=== PATIENT | female | born 1985 | race Caucasian/White ===

== ENCOUNTER 2019-04-14 15:46 | Outpatient (CLI) | payer OTHER ==
[~2019-04-14] VITALS: Ht 160 cm; Wt 100.6 kg
[~2019-04-14 15:46] MED LIST: PREN-93 PO
[2019-04-14 17:20] VITALS: BP 121/75; PULSE 74; RESP 18
[2019-04-14 17:21] VITALS: Ht 160 cm; Wt 100.6 kg
--- NOTE | 2019-04-14 17:32 | TRIAGE ---
OB Triage Datetime Report Generated by CPN: 04/14/2019 17:31 Datetime: 04/14/2019 16:46 Assessment Type: Triage Maternal Assessment Level of Consciousness: Keenly Alert, Responsive DTR's/Clonus: DTRs 2+; No Clonus Headache: Denies Blurred Vision: No Respiratory Effort: Unlabored; Regular Rhythm; Equal Expansion Breath Sounds, Left: Clear and Equal Breath Sounds, Right: Clear and Equal Nausea/Vomiting: Denies RUQ Epigastric Pain: Denies Lower Extremities Edema: None Degree: None Upper Extremities Edema: None Degree: None Facial Edema: None Fall Risk Assessment History of Falling: (0) No Secondary Diagnosis: (0) No Ambulatory Aid: (0) Bedrest/Nurse Assist IV Therapy: (0) No Gait: (0) Normal/Bedrest/Immobile Mental Status: (0) Oriented to Own Ability Fall Score: 0 Fall Risk Score Definition: No Risk: No action required Datetime: 04/14/2019 16:44 Time of Arrival: 04/14/2019 15:38 EGA: 38.5 Arrived By: Ambulatory Arrived From: Dr. Ennis Chief Complaint: PT. SENT FROM CLINIC FOR C/O DFM Movement: Decreased Contractions: Denies/Absent Rupture of Membranes: Denies Vaginal Bleeding: None Vaginal Discharge: Denies Recent Sexual Intercouse: Denies Abdominal Trauma: Not Applicable Patient Complaints: None Time Provider Notified: 04/14/2019 17:23 Provider Notified: DELSHAD Initial Plan: NST/BPP/EFW Datetime: 04/14/2019 16:39 Labor Evaluation Monitor Mode: External Heart Rate Monitor Mode: External US
--- NOTE | 2019-04-14 19:57 | PN ---
Triage Information Date/Time Reason for visit: DFM Weeks of Gestation 38 weeks and 5 days /Para -0-0-2 Diabetes: none Hypertention: none Objective Vital Signs Date Temp Pulse Resp B/P (MAP) Pulse Ox O2 O2 Flow FiO2 Time Delivery Rate 04/14/19 98.4 74 18 121/75 Room Air 17:20 (90) Heart Rate: 140's Contractions: None Disposition: Discharge Assessment/Plan 33 years old -0-0-2 with single intrauterine at 38 weeks and 5 days complaining of decreased movement. She denies nausea, vomiting, shortness of breath, chest pain, headache, visual changes, vaginal bleeding or LOF. -FHR: No sign of metabolic acidosis- Category I -Contractions: None -Ultrasound performed: Normal ROBBI, BPP 8 out of 8 -Symptoms and sign of labor, preeclampsia, kick count discussed with patient, she voiced understanding. All of her questions answered. -Patient was discharged home in stable condition with the appropriate discharge instructions provided. I would like patient to have close follow-up with her primary physician or outpatient clinic in 1-2 days or return to triage for w orsening symptoms or any other urgent concerns. ROMULO KUMARI Apr 14, 2019 19:57
== END 2019-04-14 17:35 | disposition home or self-care (01) ==
LOC: OBT 15:46 → L-D 15:48 → OBT 17:35
PROVIDERS: ATTEND Obstetrics & Gynecology
DX: O36.8130 Decreased fetal movements, third trimester, not applicable or unspecified (principal); Z3A.38 38 weeks gestation of pregnancy
CPT/HCPCS: 76815; 76818; G0463

== ENCOUNTER 2019-04-16 15:41 | Outpatient (CLI) | payer OTHER ==
[~2019-04-16] VITALS: Ht 160 cm; Wt 100.4 kg
[2019-04-16 15:58] VITALS: Ht 160 cm; Wt 100.4 kg
[2019-04-16 15:59] VITALS: BP 121/59; PULSE 87; RESP 18
--- NOTE | 2019-04-16 19:44 | PN ---
Triage Information Date/Time Reason for visit: DFM Weeks of Gestation 39 weeks /Para Diabetes: none Hypertention: none Objective Vital Signs Date Temp Pulse Resp B/P (MAP) Pulse Ox O2 O2 Flow FiO2 Time Delivery Rate 04/16/19 98.1 87 18 121/59 15:59 (79) Heart Rate: 120's Heart Rate Comments Reactive Results/Medications Imaging Results BPP 04/22 Disposition: Assessment/Plan Patient signed out against medical advice and left. VINCE MEREDITH MD Apr 16, 2019 19:44
== END 2019-04-16 18:19 | disposition left against medical advice (07) ==
LOC: OBT 15:41 → L-D 15:43 → OBT 18:19
PROVIDERS: ATTEND Obstetrics & Gynecology
DX: O36.8130 Decreased fetal movements, third trimester, not applicable or unspecified (principal); Z3A.39 39 weeks gestation of pregnancy
CPT/HCPCS: 76818; Z7500; G0463

== ENCOUNTER 2019-04-20 10:50 | Inpatient (IN) | payer OTHER ==
[~2019-04-20] VITALS: Ht 160 cm; Wt 99.8 kg
[2019-04-20 11:15] VITALS: Ht 160 cm; Wt 99.8 kg
[2019-04-20 15:22] VITALS: BP 117/74; PULSE 77; RESP 18
[2019-04-20] MEDS ORDERED: OXYTOCIN 30 UNITS/LR 500 ML IV PRN (15:30)
[2019-04-20] MEDS ORDERED: BUTORPHANOL 2 MG INJ IV PRN (15:30)
[2019-04-20] MEDS ORDERED: METHYLERGONOVINE 0.2 MG INJ IM PRN (15:30)
[2019-04-20] MEDS ORDERED: OXYTOCIN 30 UNITS/LR 500 ML IV SCH ×3 (15:30)
[2019-04-20] MEDS ORDERED: CARBOPROST 250 MCG INJ IM PRN (15:30)
[2019-04-20] MEDS ORDERED: LIDOCAINE 1% (MPF) 30 ML INJ INJ PRN (15:30)
[2019-04-20] MEDS ORDERED: MISOPROSTOL 200 MCG TAB PR PRN (15:30)
[2019-04-20] MEDS: LACTATED RINGER'S 1,000 ML IV SCH ×2 (16:14→21:01)
--- NOTE | 2019-04-20 19:22 | HP ---
Date/Time of Note Date/Time of Note DATE: 04/20/19 TIME: 19:20 OB - History Hx of Present Chief Complaint: contractions Estimated Due Date: Apr 23, 2019 : 3 Para: 2 Spontaneous : 0 Therapeutic : 0 Care: Good Care Ultrasounds: Normal mid trimester US Obstetrical Complications: None Medical Complications: None Past Family/Social History * Past Medical, Surgical, Family and Obstetric Histories reviewed from chart. GBS Status: Negative OB Admission Exam Vital Signs Vital Signs Vital Signs Date Temp Pulse Resp B/P (MAP) Pulse Ox O2 O2 Flow FiO2 Time Delivery Rate 04/20/19 98.3 77 18 117/74 Room Air 15:22 (88) Physical Exam HEENT: WNL Heart: Rhythm Normal Lungs: Clear, Equal Abdomen: WNL Extremities: Normal Reflexes: Normal Cervical Dilatation: 2cm Effacement: 50% Station: -1 Membranes: Intact Heart Rate: 120's Accelerations: Accelerations Present Decelerations: No Decelerations Varibility: Moderate Last 72 hours Lab Results CBC & BMP 04/20/19 16:00 OB Assessment/Plan Other Assessment: Early labor Plan: Other Other plan: Augment labor with oxytocin VINCE MEREDITH MD Apr 20, 2019 19:22
[2019-04-20] MEDS ORDERED: LACTATED RINGER'S 1,000 ML IV PRN (21:11)
--- NOTE | 2019-04-20 21:14 | PREAC ---
Date/Time of Note Date/Time of Note DATE: 04/20/19 TIME: 21:14 Anesthesia Eval and Record Evaluation Time Pre-Procedure Interview DATE: 04/20/19 TIME: 21:14 Age 33 Sex female NPO: Other (na ) Preoperative diagnosis labor Planned procedure epidural Past Medical History Past Medical History: None Surgery & Anesthesia Issues No known issue Meds Anticoagulation: No Beta Audra within 24 hr: No Reason Beta Audra not given: Pt. not on B-Audra Reported Medications Vit No.124/Iron/FA ( Vitamin Tablet) 1 Each Tablet, 1 EACH PO DAILY, TAB 04/14/19 Current Medications Lactated Ringer's 1,000 ml @ 125 mls/hr Q8H IV Last administered on 04/20/19at 21:01; Admin Dose 125 MLS/HR; Start 04/20/19 at 15:11 Butorphanol Tartrate (Stadol) 2 mg Q2H PRN IV .PAIN SCALE 6-10; Start 04/20/19 at 15:30 Lidocaine (Xylocaine 1% (Mpf)) 30 ml ONCE PRN INJ .EPISIOTOMY; Start 04/20/19 at 15:30 Oxytocin/Lactated Ringer's 500 ml @ 500 mls/hr ONCE POST IV ; Start 04/20/19 at 15:30 Oxytocin/Lactated Ringer's 500 ml @ 125 mls/hr POST IV ; Start 04/20/19 at 15:30 Oxytocin/Lactated Ringer's 500 ml @ 0 mls/hr ONCE PRN IV .VAGINAL BLEEDING; Start 04/20/19 at 15:30 Methylergonovine Maleate (Methergine) 0.2 mg ONCE PRN IM .VAGINAL BLEEDING; Start 04/20/19 at 15:30 Carboprost Tromethamine (Hemabate) 250 mcg ONCE PRN IM .VAGINAL BLEEDING; Start 04/20/19 at 15:30 Misoprostol (Cytotec) 1,000 mcg ONCE PRN NC .VAGINAL BLEEDING; Start 04/20/19 at 15:30 Oxytocin/Lactated Ringer's 500 ml @ 0 mls/hr Q0M IV Last administered on 04/20/19at 17:02; Admin Dose 1 MLS/HR; Start 04/20/19 at 15:30 Lactated Ringer's 1,000 ml @ 2,000 mls/hr Q30M PRN IV .ANESTHESIA Last administered on 04/20/19at 21:13; Admin Dose 2,000 MLS/HR; Start 04/20/19 at 21:11 Meds reviewed: Yes Allergies Coded Allergies: No Known Allergy (Unverified , 04/20/19) Allergies Reviewed: Yes Labs/Studies Labs Reviewed: Reviewed by anesthesiologist Result Diagram: 04/20/19 1600 Laboratory Tests 04/20/19 16:00 Blood Bank Test 04/20/19 16:00 Antibody Screen NEGATIVE Blood Type A POSITIVE Rh Immune Globulin Candidate NO test: N/A Pre-procedure Exam Last vitals Vital Signs Date Temp Pulse Resp B/P (MAP) Pulse Ox O2 O2 Flow FiO2 Time Delivery Rate 04/20/19 98.3 77 18 117/74 Room Air 15:22 (88) Airway: Adequate mouth opening, Adequate thyromental dist Mallampati: Mallampati II Teeth: Normal Lung: Normal Heart: Normal ASA Physical Status ASA physical status: 2 Emergency: None Pre-operative Attestations Prior to commencing anesthesia and surgery, the patient was re-evaluated, there was verification of: *The patient's identity *The results of appropriate recent lab work and preoperative vital signs *The above evaluation not changing prior to induction *Anesthetic plan, risk benefits, alternative and complications discussed with patient/family; questions answered; patient/family understands, accepts and wishes to proceed. PAN ROD DO Apr 20, 2019 21:14
[2019-04-20] MEDS ORDERED: FENTAnyl 2MCG/ML-ROPIV 0.2% 100 ML ONE (21:17)
[2019-04-20] MEDS ORDERED: FENTAnyl 50 MCG/ML VIAL ONE (21:17)
[2019-04-20] MEDS ORDERED: NALOXONE (0.4 MG/ML) INJ IV PRN (21:30)
[2019-04-20] MEDS ORDERED: FENTAnyl 2MCG/ML-ROPIV 0.2% 100 ML BAG EPI SCH (21:30)
--- NOTE | 2019-04-20 22:43 | PAC ---
Date/Time of Note Date/Time of Note DATE: 04/20/19 TIME: 22:42 Post-Anesthesia Notes Post-Anesthesia Note Last documented vital signs Vital Signs Date Temp Pulse Resp B/P (MAP) Pulse Ox O2 O2 Flow FiO2 Time Delivery Rate 04/20/19 98.3 77 18 117/74 Room Air 15:22 (88) Activity: WNL Respiratory function: WNL Cardiovascular function: WNL Mental status: Baseline Pain reasonably controlled: Yes Hydration appropriate: Yes Nausea/Vomiting absent: Yes PAN ROD DO Apr 20, 2019 22:43
[2019-04-21] MEDS: LACTATED RINGER'S 1,000 ML IV SCH ×3 (02:33→23:11)
[2019-04-21] MEDS ORDERED: CEFAZOLIN 2 GM/50 ML (PMX) 50 ML IVPB ONE ×2 (10:15→10:30)
--- NOTE | 2019-04-21 10:59 | LDN ---
Date/Time of Note Date/Time of Note DATE: 04/21/19 TIME: 10:56 Delivery Summary over intact perineum. Placenta delivered spontaneously. Some retained membranes noted. Using a sharp curette, curettage was performed. Weeks of Gestation 39+ weeks Placenta Delivered: Spontaneously Meconium: none Perineal laceration: 0 Anesthesia type: Epidural Estimated blood loss: 300 Sponge & Needle done & correct: Yes All needle counts correct: Yes Any foreign bodies felt in the: No Delivery Information Sex Infant Sex: female Apgars 1 Minute: 9 5 Minute: 9 Suctioning Nose & mouth suctioned at katerin: No Delee suction performed: No Umbilical Cord Umbilical cord with: 3 Vessels Cord presentations: no nuchal cord Cord Blood was obtained: Yes Mother & Baby Disposition Disposition Mom & Baby to Maternity; Good: Yes VINCE MEREDITH MD Apr 21, 2019 10:59
[2019-04-21] MEDS ORDERED: METHYLERGONOVINE 0.2 MG INJ IM PRN (11:00)
[2019-04-21] MEDS ORDERED: HYDROCODONE/APAP (5/325) TAB PO PRN (11:00)
[2019-04-21] MEDS ORDERED: DIBUCAINE 1% 30 GM OINT TOP PRN (11:00)
[2019-04-21] MEDS ORDERED: ACETAMINOPHEN 325 MG TAB PO PRN (11:00)
[2019-04-21] MEDS ORDERED: OXYTOCIN 30 UNITS/LR 500 ML IV PRN (11:00)
[2019-04-21] MEDS ORDERED: MISOPROSTOL 200 MCG TAB PR PRN (11:00)
[2019-04-21] MEDS ORDERED: BENZOCAINE 20% 56 ML SPRAY TOP PRN (11:00)
[2019-04-21] MEDS ORDERED: CARBOPROST 250 MCG INJ IM PRN (11:00)
[2019-04-21 11:30] VITALS: BP 131/69; PULSE 59
[2019-04-21] MEDS: LACTATED RINGER'S 1,000 ML IV* SCH ×2 (11:30→18:31)
[2019-04-21] MEDS: IBUPROFEN 600 MG TAB PO SCH ×3 (12:26→23:42)
[2019-04-21] MEDS: WITCH HAZEL/GLYCERIN PAD PR PRN (12:27)
[2019-04-21 17:10] VITALS: BP 115/58; PULSE 67; RESP 18
[2019-04-21 20:10] VITALS: BP 117/72; PULSE 72; RESP 18
[2019-04-21] MEDS: SENNA/DOCUSATE NA (8.6MG/50MG) TAB PO SCH (20:33)
[2019-04-22] MEDS: LACTATED RINGER'S 1,000 ML IV* SCH ×3 (02:59→18:59)
[2019-04-22 03:46] VITALS: BP 121/56; PULSE 65; RESP 18
[2019-04-22] MEDS: IBUPROFEN 600 MG TAB PO SCH ×4 (06:13→23:46)
[2019-04-22] MEDS: LACTATED RINGER'S 1,000 ML IV SCH ×3 (07:11→23:11)
[2019-04-22 08:00] VITALS: BP 109/68; PULSE 69; RESP 18
[2019-04-22] MEDS: SENNA/DOCUSATE NA (8.6MG/50MG) TAB PO SCH ×2 (10:37→21:40)
[2019-04-22 16:20] VITALS: BP 145/67; PULSE 72; RESP 18
[2019-04-22 18:45] VITALS: BP 121/68; PULSE 68; RESP 18
--- NOTE | 2019-04-22 18:59 | QN ---
Documentation Comment No complaint Afebrile VSS Fundus firm Lochia scant PPD #1 Stable Continue present care. VINCE MEREDITH MD Apr 22, 2019 18:59
[2019-04-22 19:45] VITALS: BP 131/76; PULSE 73; RESP 18
[2019-04-22] MEDS: WITCH HAZEL/GLYCERIN PAD PR PRN (21:40)
[2019-04-23 03:55] VITALS: BP 108/66; PULSE 72; RESP 18
[2019-04-23] MEDS: IBUPROFEN 600 MG TAB PO SCH (05:34)
[2019-04-23 07:30] VITALS: BP 115/72; PULSE 60; RESP 18
[2019-04-23] MEDS: SENNA/DOCUSATE NA (8.6MG/50MG) TAB PO SCH (09:00)
[2019-04-23] MEDS ORDERED: DIPHTH/TET/ACEL PERTUSS (ADULT) 0.5 ML VIAL IM* ONE (09:00)
--- NOTE | 2019-04-23 09:43 | DS ---
Date/Time of Note Date/Time of Note DATE: 04/23/19 TIME: 09:43 Obstetrical Discharge Record Final Diagnosis Final Diagnosis: Term delivered Vaginal Delivery Obstetrical Delivery: Spontaneous Complications Augmentation: Yes Condition on Discharge Physical Assessment Voiding: Yes Bowel Movement: Yes Breast: Soft, non-tender, Filling Fundus: Firm Calf Tenderness: No Patient Condition: Stable VINCE MEREDITH MD Apr 23, 2019 09:43
--- NOTE | 2019-04-24 12:06 | DELSUM ---
Delivery Summary A-C Datetime Report Generated by CPN: 04/24/2019 12:05 DELIVERY PERSONNEL Electronic Publications Specialist: Norma Arias MATERNAL INFORMATION Delivery Anesthesia: Epidural Medications in Delivery: LR WITH 30 UNITS PITOCIN Delivery QBL (ml): 300 Placenta Cultured: No Maternal Complications: Other Other Maternal Complications: LOW ROBBI LABOR SUMMARY EDC: 04/23/2019 00:00 No. Babies in Womb: 1 Attempted: No Labor Anesthesia: Epidural LABOR INFORMATION Reason for Induction: Other Reason for Induction- Other: LOW ROBBI Onset of Labor: 04/20/2019 21:53 Complete Dilatation: 04/21/2019 09:39 Group B Beta Strep: Negative Antibiotics # of Doses: 0 Steroids Given: None Reason Steroids Not Administered: Not Applicable MEMBRANES Membranes Rupture Method: Artificial Rupture of Membranes: 04/21/2019 08:49 Length of Rupture (hr): 1.25 Amniotic Fluid Color: Clear Amniotic Fluid Amount: Small Amniotic Fluid Odor: Normal STAGES OF LABOR Stage 1 hr: 11 Stage 1 min: 46 Stage 2 hr: 0 Stage 2 min: 25 Stage 3 hr: 0 Stage 3 min: 6 Total Time in Labor hr: 12 Total Time in Labor min: 17 VAGINAL DELIVERY Episiotomy: None Laceration Extension: N/A Laceration Type: None Laceration Repair: No Initial Vag Sponge Count: 10 Final Vag Sponge Count: 10 Initial Vag Sharps Count: 1 Final Vag Sharps Count: 1 Sponge Count Correct: Yes Sharps Count Correct: Yes BABY A INFORMATION Infant Delivery Date/Time: 04/21/2019 10:04 Method of Delivery: Vaginal Born in Route : No : N/A Forceps: N/A Vacuum Extraction: N/A Shoulder Dystocia : No SHOULDER DYSTOCIA BABY A Delivery Date/Time: 04/21/2019 10:04 PRESENTATION/POSITION BABY A Presentation: Cephalic Cephalic Presentation: Vertex Vertex Position: Left Occipital Anterior Breech Presentation: N/A PLACENTA INFORMATION BABY A Placenta Delivery Time : 04/21/2019 10:10 Placenta Method of Delivery: Spontaneous Placenta Status: Delivered SCORES BABY A Heart Rate 1 min: >100 bpm Resp Effort 1 min: Good Cry Reflex Irritability 1 min: Cough/Sneeze/Pulls Away Muscle Tone 1 min: Active Motion Color 1 min: Body [place], Extremit Blue Resuscitation Effort 1 min: Tactile Stimulation; Oxygen SCORE 1 MIN: 9 Heart Rate 5 min: >100 bpm Resp Effort 5 min: Good Cry Reflex Irritability 5 min: Cough/Sneeze/Pulls Away Muscle Tone 5 min: Active Motion Color 5 min: Body [place], Extremit Blue Resuscitation Effort 5 min: Tactile Stimulation SCORE 5 MIN: 9 INFORMATION BABY A Gestational Age at Delivery: 39.5 Gestational Status: Full Term- 39- 40.6 Weeks Outcome : Liveborn, with signs of life Infant Condition : Stable Infant Sex: Female IDENTIFICATION/MEDS BABY A ID Band Number: [id number] ID Band Location: Right Leg; Left Arm Sensor Applied: Yes Sensor Number: [id number] Sensor Location : Cord Clamp Vitamin K Given : Not Given Erythromycin Given: Not Given WEIGHT/LENGTH BABY A Infant Birthweight (gm): 2825 Weight (lb): 6 Infant Weight (oz): 4 Infant Length (in): 19.50 Length (cm): 49.53 CORD INFORMATION BABY A No. Cord Vessels: 3 Nuchal Cord : N/A Cord Blood Taken: Yes Suction: Mouth; Nose ASSESSMENT BABY A Complications: None Complications- Other: SUCTION 6ML OF MUCUS Physical Findings at Delivery: Within Normal Limits Respirations: Appears Normal Certified Nursing Attendant/ALS Called : No Transferred To: Remains with Mother
== END 2019-04-23 12:05 | disposition home or self-care (01) | DRG 798 ==
LOC: OBT 10:50 → L-D 10:50 → OBT 12:05 → L-D 13:23 → PP1 04-21 11:33
PROVIDERS: ADMIT Obstetrics & Gynecology; ATTEND Obstetrics & Gynecology
PROC: 10E0XZZ Delivery of Products of Conception, External Approach (ICD-10-PCS; principal; 2019-04-21)
PROC: 10D17ZZ Extraction of Products of Conception, Retained, Via Natural or Artificial Opening (ICD-10-PCS; 2019-04-21)
DX: O73.1 Retained portions of placenta and membranes, without hemorrhage (principal); Z37.0 Single live birth; Z3A.39 39 weeks gestation of pregnancy
CPT/HCPCS: 62322; 76815; 76818; 85025; 85610; 85730; 86592; 86850; 86900; 86901; 87340; G0463; J0690; J2590; J3010; J7120